=== PATIENT | female | born 2000 | race Two or more races ===

== ENCOUNTER 2018-03-16 22:05 | Emergency (ER) | payer MEDICAID ==
[~2018-03-16] VITALS: Ht 172.7 cm; Wt 63.9 kg
[2018-03-16 23:05] LABS: MICROSCOPIC AUTO
[2018-03-16 23:14] LABS: CULTURE INDICATED? YES
[2018-03-17] VITALS: BP 111/61
== END 2018-03-17 00:02 | disposition home or self-care (01) ==
LOC: ED 23:40
DX: N30.00 Acute cystitis without hematuria (principal); R11.2 Nausea with vomiting, unspecified; M54.5 Low back pain; Z88.8 Allergy status to other drugs, medicaments and biological substances
CPT/HCPCS: 81001; 87086; 99284